=== PATIENT | female | born 1970 | race Caucasian/White ===

== ENCOUNTER 2019-11-14 05:24 | Observation (INO) | payer OTHER ==
[2019-11-13 14:39] LABS: BASOPHILS # (AUTO) 0.1 (0.0-0.1); BASOPHILS % 0.5 % (0.0-1.0); EOSINOPHILS # (AUTO) 0.2 (0.0-0.4); HEMATOCRIT 39.2 % (34.2-44.1); LYMPHOCYTES # (AUTO) 3.3 (1.0-3.2); LYMPHOCYTES % 32.4 % (18.0-39.1); MEAN CORPUSCULAR HGB CONC 33.2 g/dL (31-35); MEAN CORPUSCULAR VOLUME 90.3 fL (81-99); MONOCYTES # (AUTO) 0.7 (0.2-0.8); MONOCYTES % 6.8 % (4.4-11.3); NEUTROPHILS % 57.9 % (38.7-80.0); PLATELET COUNT 348 x10e3/uL (140-360); RED BLOOD COUNT 4.34 x10e6/uL (3.6-5.1); RED CELL DISTRIBUTION WIDTH 14.6 % (11.7-14.4)
[2019-11-13 14:45] LABS: INR 0.81; PROTHROMBIN TIME 11.6 seconds (11.9-14.5)
[2019-11-13 14:46] LABS: PARTIAL THROMBOPLASTIN TIME 33.7 seconds (23.8-35.5)
[2019-11-13 14:50] LABS: ANION GAP 11.9 mmol/L (8-16); BLOOD UREA NITROGEN 11 mg/dL (7-26); BUN/CREATININE RATIO 15 (6-25); CALCIUM 9.4 mg/dL (8.4-10.2); CARBON DIOXIDE 28 mmol/L (22-29); CHLORIDE 102 mmol/L (98-107); CREATININE, SERUM 0.72 mg/dL (0.57-1.11); EST GLOMERULAR FILTRATION RATE > 60 ML/MIN (60-); GLUCOSE 90 mg/dL (74-118); POTASSIUM 3.9 mmol/L (3.5-5.1); SODIUM 138 mmol/L (136-145)
--- NOTE | 2019-11-13 15:47 | Diagnostic Imaging Report ---
EXAMINATION: CHEST 2 VIEWS INDICATION: Pre-operative COMPARISON: None FINDINGS: LINES/TUBES:None LUNGS:The lungs are well-inflated. No focal consolidation or pulmonary edema. PLEURA:No pleural effusion or pneumothorax. MEDIASTINUM:The cardiomediastinal silhouette appears normal in size and shape. BONES/SOFT TISSUES:No acute osseous injury. ABDOMEN:No free air under the diaphragm. Status post cholecystectomy. IMPRESSION: No focal pneumonia or pulmonary edema. Signed by: Ceci Adam MD on 11/13/2019 3:44 PM
[~2019-11-14] VITALS: Ht 162.6 cm; Wt 88.9 kg
[~2019-11-14 05:24] MED LIST: BUSPIRONE HCL5 MG PO; CITALOPRAM HBR20 MG PO; LEVOTHYROXINE100 MC1 PO; LISINOPRIL10 MG PO; PANTOPRAZOLE SO40 MG PO
--- OUTSIDE RECORDS SUMMARY | 2019-11-14 05:35 | XMS REPORT ---
Author Author [facility] Address Unknown Phone Unavailable Care Team Providers Care Buckle Assembler Name Role Phone VARSHA SHEEHAN Unavailable Unavailable Problems This patient has no known problems. Allergies, Adverse Reactions, Alerts This patient has no known allergies or adverse reactions. Medications This patient has no known medications. Results Test Description Test Time Test Comments Text Results Atomic Results Result Comments CHEST 2 VIEWS 2019-11-13 15:44:00 [place] [address] Patient Name: FELIPE HURT MR #: [id number] : 1970 Age/Sex: 49/F Req #: [id number] Adm Physician: Ordered by: VARSHA SHEEHAN MD Report #: [id number] Location: OR Room/Bed: Procedure: [id number] DX/CHEST 2 VIEWS Exam Date: 11/13/19 Exam Time: 1518 REPORT STATUS: Signed EXAMINATION: CHEST 2 VIEWS INDICATION: Pre-operative COMPARISON: None FINDINGS: LINES/TUBES:None LUNGS:The lungs are well-inflated. No focal consolidation or pulmonary edema. PLEURA:No pleural effusion or pneumothorax. MEDIASTINUM:The cardiomediastinal silhouette appears normal in size and shape. BONES/SOFT TISSUES:No acute osseous injury. ABDOMEN:No free air under the diaphragm. Status post cholecystectomy. IMPRESSION: No focal pneumonia or pulmonary edema. Signed by: Imelda Ruiz MD on 11/13/2019 3:44 PM Dictated By: IMELDA RUIZ MD [id number] Transcribed By: PRASAD on 11/13/19 1546 COPY TO: VARSHA SHEEHAN MD
[2019-11-14] MEDS ORDERED: VANCOMYCIN 1GM/NS 250 ML 250 ML ONE (05:57)
[2019-11-14] MEDS ORDERED: LIDOCAINE 1% W/EPINEPHRINE 20 ML VIAL ONE (06:45)
[2019-11-14] MEDS ORDERED: BACITRACIN 50,000 UNIT VIAL ONE (06:45)
[2019-11-14] MEDS ORDERED: THROMBIN FOR SOLN 5,000 UNIT VIAL ONE (06:45)
[2019-11-14] MEDS ORDERED: ACETAMINOPHEN 1000 MG/100 ML 100 ML IV ONE (07:16)
[2019-11-14] MEDS ORDERED: IBUPROFEN 800MG/ 200ML 200 ML IV ONE (07:17)
[2019-11-14] MEDS ORDERED: LIDOCAINE HCL (LTA) 4 ML SOLN ONE (07:17)
[2019-11-14] MEDS ORDERED: LACTATED RINGER'S 1,000 ML IV SCH (09:00)
[2019-11-14] MEDS ORDERED: LISINOPRIL 10 MG TAB PO SCH (09:00)
[2019-11-14] MEDS: CITALOPRAM HYDROBROMIDE 20 MG TAB PO SCH (09:00)
[2019-11-14] MEDS ORDERED: PROMETHAZINE HCL (IM) 25 MG/ML VIAL IM PRN (09:00)
[2019-11-14] MEDS: BUSPIRONE HCL 5 MG TAB PO SCH (09:00)
[2019-11-14] MEDS ORDERED: CEPACOL SORE THROAT LOZENGES PO PRN (09:00)
[2019-11-14] MEDS ORDERED: MAGNESIUM/ALUMINUM/SIMETHICONE 30 ML UDC PO PRN (09:00)
[2019-11-14] MEDS ORDERED: MORPHINE SULFATE 5 MG/ML VIAL IM PRN (09:00)
[2019-11-14] MEDS ORDERED: ONDANSETRON HCL INJ 2MG/ML 2ML 2 MG/ML VIAL IV PRN (09:00)
[2019-11-14] MEDS ORDERED: ACETAMINOPHEN 325 MG TAB PO PRN (09:00)
[2019-11-14] MEDS ORDERED: MEPERIDINE HCL INJ 25 MG/ML VIAL ONE ×2 (09:16→09:43)
[2019-11-14] MEDS ORDERED: FENTANYL CITRATE/PF 100MCG/2 ML INJ ONE ×2 (09:21→18:19)
[2019-11-14] MEDS ORDERED: DIPHENHYDRAMINE HCL INJ 50 MG/ML VIAL ONE (11:46)
[2019-11-14] MEDS ORDERED: CARISOPRODOL 350 MG TAB ONE (12:35)
--- NOTE | 2019-11-14 12:55 | NUR ---
RECEIVED TO RM AAOX3 NO DISTRESS NOTED, UPDATED ON POC VOICED UNDERSTANDING, DSG TO CERVICAL WITH COLLAR IN PLACE, IVF INFUSING TO R HAND 20G NO SS OF INFILTRATION NOTED, DENIES PIAN AT THIS TIME, CALL LIGHT IN REACH WILL CONTINUE OT MONITTOR
[2019-11-14 13:00] VITALS: BP 100/75
[2019-11-14] MEDS: OXYCODONE/ACETAMINOPHEN 5-325 1 EACH TABLET PO PRN ×3 (13:28→23:55)
--- NOTE | 2019-11-14 13:42 | Operative Report ---
DATE OF PROCEDURE: 11/14/2019 SURGEON: Crow Mcwilliams MD PREOPERATIVE DIAGNOSES: C5-6 disk herniation and spondylosis with radiculopathy, M50.122. POSTOPERATIVE DIAGNOSES: C5-6 disk herniation and spondylosis with radiculopathy, M50.122. PROCEDURES: 1. C5-6 anterior cervical diskectomy and microsurgical osteophyte resection and allograft fusion, 99919. 2. Preparation of MTF corticocancellous allograft, 26837. 3. C5-6 anterior cervical plating with Synthes ZPN plate, 06290. ANESTHESIA: General. INDICATIONS: The patient is a 49-year-old woman, who presents with C5-6 spondylosis and disk herniation symptomatic with left C6 radiculopathy, refractory to conservative treatment. She was taken to surgery for C5-6 anterior cervical diskectomy and fusion. PROCEDURE IN DETAIL: After induction of general anesthesia, the patient was placed on the operating table in supine position. The right side of the neck was prepped and draped in sterile fashion. The fluoroscopic C-arm was positioned in cross-table lateral orientation. A small transverse incision was created on the right side of the neck, superimposed on the C5-6 disk space as determined by fluoroscopy. The platysma was divided in line with the incision. A subplatysmal dissection was carried out and avascular plane of dissection was developed medial to the sternocleidomastoid muscle, and was followed medial to the carotid sheath to the anterior border of the cervical spine. The deep cervical fascia was opened. The esophagus was retracted to the left. The attachments of longus colli muscles to the anterolateral aspects of vertebral bodies of C5 and C6 were divided. The anterior longitudinal ligament was resected. Kelso posts were inserted into C5 and C6. A Kelso distractor was used to distract the disk space. The anterior annulus of the disk was incised with a #11 blade. The contents of the disks were thoroughly evacuated with angled curettes and pituitary rongeurs. The posterior osteophytes were meticulously drilled with a 2 mm cutting bur on a high-speed drill until they were completely removed. The posterior annulus of the disk, herniated disk material, and the posterior lateral ligament were resected layer by layer until the dura was fully exposed and decompressed. The medial aspects of the uncinate processes were resected bilaterally to further expose any compressed origins of the corresponding nerve roots. After satisfactory decompression had been achieved, the endplates were prepared for fusion. The disk space was sized and found to be 9 mm in height. A piece of MTF corticocancellous allograft measuring 9 mm in thickness was selected and prepared in saline and loaded onto a Synthes ZPN plate of the corresponding size. The construct was inserted into the C5-6 disk space under distraction and fluoroscopic guidance and tamped in place until its anterior margin was flushed with anterior surface of the vertebral bodies. The plate was then screwed to the endplates of C5 and C6 with 2 pairs of 14 mm screws. All screws were locked and excellent construct was obtained. The wound was copiously irrigated with bacitracin solution. Meticulous hemostasis was secured. Retractor was removed. The platysma was closed with 3-0 Vicryl sutures. The skin was closed with 4-0 Monocryl sutures in subcuticular fashion. Steri-Strips and dressing were applied. The patient was awakened, extubated, and taken to postanesthesia care unit in stable condition. No intraoperative complications were encountered. ESTIMATED BLOOD LOSS: 10 mL. Crow Mcwilliams MD PP/ANAMARIA /[id number]
[2019-11-14] MEDS ORDERED: GLYCOPYRROLATE INJ 0.2 MG/ML VIAL ONE (13:57)
[2019-11-14] MEDS ORDERED: ROCURONIUM BROMIDE 10 MG/ML 5ML VIAL ONE (13:57)
[2019-11-14] MEDS ORDERED: SEVOFLURANE INHAL SOLN 250 ML PEN BTL ONE (13:57)
[2019-11-14] MEDS ORDERED: LIDOCAINE HCL 2% JELLY 5 ML TUBE ONE (13:57)
[2019-11-14] MEDS ORDERED: PROPOFOL IV EMULSION 10 MG/ML 20 ML VIAL ONE (13:57)
[2019-11-14] MEDS ORDERED: NEOSTIGMINE 1 MG/ML 10ML VIAL ONE (13:57)
[2019-11-14] MEDS ORDERED: DEXAMETHASONE SOD PHOS INJ 4 MG/ML VIAL ONE (13:57)
[2019-11-14] MEDS ORDERED: LIDOCAINE HCL 2% LOCAL INJ 5 ML SDV VIAL INJ ONE (13:57)
[2019-11-14] MEDS ORDERED: ONDANSETRON HCL INJ 2MG/ML 2ML 2 MG/ML VIAL ONE (13:57)
[2019-11-14 14:08] VITALS: BP 100/75
[2019-11-14] MEDS: PANTOPRAZOLE SOD 40 MG TABEC PO SCH (15:00)
[2019-11-14 16:26] VITALS: BP 119/88
[2019-11-14] MEDS: CARISOPRODOL 350 MG TAB PO PRN ×2 (16:35→20:41)
[2019-11-14] MEDS: VANCOMYCIN 1GM/NS 250 ML 250 ML IV SCH (18:00)
[2019-11-14] MEDS ORDERED: MIDAZOLAM HCL 2 MG/2 ML VIAL ONE (18:19)
--- NOTE | 2019-11-14 19:05 | NUR ---
RECEIVED REPORT FROM PREVIOUS NURSE. CALL LIGHT WITHIN REACH. PATIENT IN BED. PATIENT IS A&OX3 AND AMBULATES. CERVICAL COLLAR AROUND PATIENT'S NECK
[2019-11-14 20:00] VITALS: BP 104/65
[2019-11-14] MEDS: HYDROMORPHONE 2MG/ML 2 MG/ML ML IV PRN (20:06)
[2019-11-14 20:38] VITALS: BP 104/65
[2019-11-14] MEDS ORDERED: ZOLPIDEM TARTRATE 5 MG TAB PO PRN (21:00)
[2019-11-15] VITALS: BP 118/73
--- NOTE | 2019-11-15 00:46 | NUR ---
DID HOURLY ROUNDING AND PATIENT IS ASLEEP IN BED.
[2019-11-15] MEDS: CARISOPRODOL 350 MG TAB PO PRN ×2 (01:58→06:57)
[2019-11-15] MEDS: HYDROMORPHONE 2MG/ML 2 MG/ML ML IV PRN (01:58)
[2019-11-15] MEDS: VANCOMYCIN 1GM/NS 250 ML 250 ML IV SCH (05:43)
[2019-11-15] MEDS ORDERED: LEVOTHYROXINE SODIUM 100 MCG TAB PO SCH (06:00)
--- NOTE | 2019-11-15 06:58 | NUR ---
GAVE REPORT TO ONCOMING NURSE. CALL LIGHT WITHIN REACH. PATIENT IN BED.
[2019-11-15] MEDS ORDERED: NORCO 7.5-3251 EACH PO (07:08)
--- NOTE | 2019-11-15 07:14 | Diagnostic Imaging Report ---
X-ray Cervical Spine, 3 views HISTORY: Post surgical x-ray COMPARISON: None. FINDINGS: Limited sensitivity for detection of subtle fractures and ligamentous abnormalities. On the lateral view, the cervical spine is visualized from the skull base to . The alignment is normal. Intact cervical fixation hardware and disc spacer at C5-C6. Disc Spaces and Uncovertebral Joints: Disc osteophytes at C5-C6 where there is now a disc spacer and anterior cervical fixation hardware.. Facets: Mild sclerosis at lower cervical facet joints. IMPRESSION: Intact cervical fixation hardware and disc spacer at C5-C6. Mild swelling of the vertebral soft tissues and trace soft tissue air compatible with recent surgery. Superimposed infection cannot be excluded on the basis of this radiograph. Mild degenerative changes in the cervical spine. Signed by: Galileo Matthews DO on 11/15/2019 7:12 AM
[2019-11-15] MEDS: PANTOPRAZOLE SOD 40 MG TABEC PO SCH (07:33)
[2019-11-15] MEDS: CITALOPRAM HYDROBROMIDE 20 MG TAB PO SCH (07:33)
[2019-11-15] MEDS: BUSPIRONE HCL 5 MG TAB PO SCH (07:33)
[2019-11-15] MEDS ORDERED: LISINOPRIL 20 MG TAB PO SCH (09:00)
== END 2019-11-15 08:27 | disposition home or self-care (01) ==
LOC: OR 05:24 → PACU V 09:03 → MED/SURG 12:52
PROVIDERS: ADMIT Neurological Surgery; ATTEND Neurological Surgery
DX: M50.122 Cervical disc disorder at C5-C6 level with radiculopathy (principal); Z88.0 Allergy status to penicillin; E03.9 Hypothyroidism, unspecified; Z90.49 Acquired absence of other specified parts of digestive tract; F17.210 Nicotine dependence, cigarettes, uncomplicated; I10 Essential (primary) hypertension; Z01.810 Encounter for preprocedural cardiovascular examination; Z01.812 Encounter for preprocedural laboratory examination; Z01.811 Encounter for preprocedural respiratory examination
CPT/HCPCS: 36415; 71046; 72040; 77003; 80048; 81025; 85025; 85610; 85730; 86850; 86900; 88304; 93005; G0378; J1100; J1200; J2001; J2175; J2250; J2405; J2710; J3010; J3370; J7121

== ENCOUNTER → 2019-12-16 | Outpatient (CLI) | payer OTHER ==
[~2019-12-16] MED LIST changes: +NORCO 7.5-3251 EACH PO
--- NOTE | 2019-12-16 14:56 | Diagnostic Imaging Report ---
Cervical spine, 4 views. History: Postop. Comparison: 11/15/2019. Discussion: The cervical spine is visualized on the lateral view from C1 through the top of T1. There is normal lordotic curvature. C5-C6 intervertebral spacer is unchanged in position. There is no evidence of fracture, subluxation, or posterior splaying. The remaining intervertebral disc spaces are normal. There is no evidence of subluxation on flexion and extension views. The prevertebral soft tissues are within normal limits. IMPRESSION: Status post C5-C6 ACDF in anatomic alignment. No evidence of instability on flexion and extension views. Signed by: Darrel Rodriguez on 12/16/2019 2:53 PM
== END ==
LOC: RAD 13:45
PROVIDERS: ATTEND Neurological Surgery
DX: M50.20 Other cervical disc displacement, unspecified cervical region (principal); M43.22 Fusion of spine, cervical region
CPT/HCPCS: 72050